=== PATIENT | male | born 1985 | race Caucasian/White ===

== ENCOUNTER 2020-10-15 21:09 | Emergency (ER) | payer MEDICAID ==
[~2020-10-15] VITALS: Ht 172.7 cm; Wt 147.0 kg
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
[2020-10-16] MEDS ORDERED: acetaminophen 325mg tablet PO ONE (05:00)
[2020-10-16 05:15] VITALS: BP 149/97
== END 2020-10-16 05:23 | disposition home or self-care (01) ==
LOC: ER 21:09
DX: M25.562 Pain in left knee (principal); M25.521 Pain in right elbow; G44.209 Tension-type headache, unspecified, not intractable; R42 Dizziness and giddiness
CPT/HCPCS: 82948; 99284